=== PATIENT | male | born 1985 | race Caucasian/White ===

== ENCOUNTER 2019-01-24 00:07 | Emergency (ER) | payer SELFPAY ==
[~2019-01-24] VITALS: Ht 172.7 cm; Wt 78.0 kg
[2019-01-24] MEDS ORDERED: KETOROLAC 60MG/2ML VIAL IM ONE (03:30)
[2019-01-24] MEDS ORDERED: HYDROCODONE/ACETAMINOPHEN 5/325MG TABLET PO ONE (03:30)
[2019-01-24 04:17] VITALS: BP 120/62
== END 2019-01-24 04:21 | disposition home or self-care (01) ==
LOC: ER 00:07
DX: S02.85XA Fracture of orbit, unspecified, initial encounter for closed fracture (principal); R51 Headache; J45.909 Unspecified asthma, uncomplicated; Y04.0XXA Assault by unarmed brawl or fight, initial encounter; Y93.89 Activity, other specified; Y92.89 Other specified places as the place of occurrence of the external cause; Y99.8 Other external cause status
CPT/HCPCS: 70450; 70486; 82962; 96372; 99284; J1885